=== PATIENT | female | born 1995 | race Asian ===

== ENCOUNTER 2020-03-26 06:34 | Day surgery (SDC) | payer OTHER, SELFPAY ==
[~2020-03-26] VITALS: Ht 167.6 cm; Wt 68.0 kg
[2020-03-26] MEDS ORDERED: fentaNYL citrate 0.05 MG/ML VIAL ONE (07:33)
[2020-03-26] MEDS ORDERED: diphenhydrAMINE 50 MG/ML VIAL ONE (07:33)
[2020-03-26] MEDS ORDERED: MIDAZOLAM 5 MG/5 ML VIAL ONE (07:34)
[2020-03-26] MEDS ORDERED: LIDOCAINE 2% 100 MG/5 ML UJET TP ONE (07:34)
[2020-03-26] MEDS ORDERED: MIDAZOLAM 2 MG/2 ML VIAL IVP ONE (08:20)
[2020-03-26] MEDS ORDERED: fentaNYL citrate 0.05 MG/ML VIAL IVP ONE (08:20)
== END 2020-03-26 09:00 | disposition home or self-care (01) ==
LOC: MDS 06:34 → MFCC 06:34 → MDS 09:00
PROVIDERS: ATTEND Internal Medicine Gastroenterology
DX: K59.00 Constipation, unspecified (principal); K58.1 Irritable bowel syndrome with constipation; K64.8 Other hemorrhoids; Z79.899 Other long term (current) drug therapy; Z20.828 Contact with and (suspected) exposure to other viral communicable diseases
CPT/HCPCS: 45378; 81025; J2250; J3010; U0003; J1200

== ENCOUNTER 2020-06-18 07:44 | Day surgery (SDC) | payer OTHER ==
[~2020-06-18] VITALS: Ht 167.6 cm; Wt 68.0 kg
[2020-06-18] MEDS ORDERED: diphenhydrAMINE 50 MG/ML VIAL ONE (09:03)
[2020-06-18] MEDS ORDERED: MIDAZOLAM 5 MG/5 ML VIAL ONE (09:04)
[2020-06-18] MEDS ORDERED: fentaNYL citrate 0.05 MG/ML VIAL ONE (09:04)
[2020-06-18] MEDS ORDERED: MIDAZOLAM 2 MG/2 ML VIAL IVP ONE (10:15)
[2020-06-18] MEDS ORDERED: fentaNYL citrate 0.05 MG/ML VIAL IVP ONE (10:15)
[2020-06-18] MEDS ORDERED: MIDAZOLAM 2 MG/2 ML VIAL IVP SCH (11:00)
[2020-06-18] MEDS ORDERED: fentaNYL citrate 0.05 MG/ML VIAL IVP SCH (11:00)
== END 2020-06-18 10:25 | disposition home or self-care (01) ==
LOC: MDS 07:44 → MMU 07:47 → MDS 10:25
PROVIDERS: ATTEND Internal Medicine Gastroenterology
DX: R10.9 Unspecified abdominal pain (principal); K59.00 Constipation, unspecified; K58.1 Irritable bowel syndrome with constipation; Z80.0 Family history of malignant neoplasm of digestive organs; Z88.6 Allergy status to analgesic agent; Z79.899 Other long term (current) drug therapy
CPT/HCPCS: 43239; J2250; J3010; J7030; J1200